=== PATIENT | male | born 1995 | race African-American/Black ===

== ENCOUNTER 2017-03-22 23:05 | Emergency (ER) | payer OTHER ==
[~2017-03-22] VITALS: Ht 167.6 cm; Wt 79.4 kg
--- NOTE | ~2017-03-22 | CR173 ---
[facility] A Service of [facility] & [facility] RADIOLOGY TEXT RESULTS PATIENT: SLIM GAO LOCATION: [facility] : [birth year] UNIT #: [id number] AGE: [address]: Fabio Elizabeth MD SEX: M ORDER DR: [id number] [facility] [address] [place]. [place], [place] [address] [id number] E MR#: [id number] Acc #: [id number] NAME: SLIM GAO. : 1995 SEX: M STUDY DATE/TIME: 03/22/2017 23:21 UNIT: [facility] ROOM: STUDY DESCRIPTION: CR Knee 3 Views Rt Attending Physician: Fabio Elizabeth M.D. Ordering Physician: Ed Doctor [id number] [facility] Primary Care Physician: No Primary Care Physician MEDICAL IMAGING REPORT This report is preliminary unless electronic signature is present EXAM Right knee series INDICATIONS Right knee pain after an injury today. PROCEDURE Three views of the right knee COMPARISON None FINDINGS No fracture or dislocation. Anterior knee soft tissue swelling. IMPRESSION Anterior knee soft tissue swelling. No fracture or dislocation. Dictated by... Abdiel Calvo M.D. THIS IS AN ELECTRONICALLY VERIFIED REPORT Abdiel Calvo M.D. at 03/23/2017 10:25 PM Adam TD: 03/23/2017 07:00 JOB #: [id number] MEDICAL IMAGING REPORT Page 1 of 1 COPY
[~2017-03-22 23:05] MED LIST: IBUPROFEN800 MG PO
== END 2017-03-23 01:38 | disposition home or self-care (01) ==
LOC: CED 23:05 → CFTX 23:05
DX: S83.91XA Sprain of unspecified site of right knee, initial encounter (principal); X50.9XXA Other and unspecified overexertion or strenuous movements or postures, initial encounter; Y92.009 Unspecified place in unspecified non-institutional (private) residence as the place of occurrence of the external cause
CPT/HCPCS: 29530; 73562; 99283

== ENCOUNTER 2017-04-24 01:41 | Emergency (ER) | payer OTHER ==
[~2017-04-24] VITALS: Ht 167.6 cm; Wt 76.7 kg
--- NOTE | ~2017-04-24 | CR21 ---
[facility] A Service of [facility] & [facility] RADIOLOGY TEXT RESULTS PATIENT: SLIM GAO LOCATION: [facility] : [birth year] UNIT #: [id number] AGE: [address]: MARIN CORTÉS APRN SEX: M ORDER DR: [id number] [facility] [address] [place], [place] [address] [id number] E MR#: [id number] Acc #: [id number] NAME: SLIM GAO : 1995 SEX: M STUDY DATE/TIME: 04/24/2017 03:00 UNIT: [facility] ROOM: STUDY DESCRIPTION: CR Ankle Min 3 Views Rt Attending Physician: Marin Cortés Aprn Ordering Physician: Ed Doctor [id number] [facility] Primary Care Physician: Huyen Nunez MEDICAL IMAGING REPORT This report is preliminary unless electronic signature is present EXAM Right ankle 04/24/2017 at 03:00 INDICATION Ankle pain after twisting injury today. FINDINGS Three views of the right ankle were obtained. There is some lateral soft tissue swelling. No fracture or malalignment is identified. The mortise is intact. IMPRESSION Lateral soft tissue swelling without acute fracture. Dictated by... Stewart Burton Jr., M.D. THIS IS AN ELECTRONICALLY VERIFIED REPORT Stewart Burton Jr., M.D. at 04/25/2017 12:52 AM CODI/najma TD: 04/24/2017 09:51 JOB #: [id number] MEDICAL IMAGING REPORT Page 1 of 1 COPY
== END 2017-04-24 05:23 | disposition home or self-care (01) ==
LOC: CED 01:41
DX: S93.401A Sprain of unspecified ligament of right ankle, initial encounter (principal); X50.1XXA Overexertion from prolonged static or awkward postures, initial encounter; Y93.02 Activity, running; Y92.830 Public park as the place of occurrence of the external cause
CPT/HCPCS: 29540; 73610; 99283